=== PATIENT | female | born 1970 | race African-American/Black ===

== ENCOUNTER → 2017-04-24 | Outpatient (CLI) | payer OTHER ==
[2017-03-25 15:00] VITALS: BP 103/60
[~2017-04-24] MED LIST: HYDR-2758 PO
--- NOTE | 2017-04-24 11:38 | RAD ---
Indication: Follow-up abnormal CT head. Bilateral frontal contusions without hemorrhagic transformation. Technique: Noncontrast CT head was obtained. Comparison is from March 23, 2017. One or more of the following individualized dose reduction techniques were utilized for this examination: 1. Automated exposure control 2. Adjustment of the mA and/or kV according to patient size 3. Use of iterative reconstruction technique Findings: Areas of decreased attenuation in both frontal lobes inferiorly are similar to prior. These may be secondary to parenchymal contusions without intraparenchymal hemorrhage. Findings also could be areas of encephalomalacia from an older trauma. No new or enlarging area of increased or decreased attenuation within the brain parenchyma is apparent. The ventricles and sulci are within normal limits for age. There is no extra-axial fluid collection. There is no evidence of an evolving infarct. There is no depressed skull fracture. The included right maxillary sinus is opacified, likely with wall sclerosis. Impression: 1. Stable areas of decreased attenuation in the inferior frontal lobes could represent edema from recent trauma or encephalomalacia from more remote trauma. There is no intraparenchymal hemorrhage. 2. Findings suggesting chronic right maxillary sinusitis.
== END | disposition home or self-care (01) ==
LOC: CT 10:14
PROVIDERS: ATTEND Neurological Surgery
DX: S06.2X9A Diffuse traumatic brain injury with loss of consciousness of unspecified duration, initial encounter (principal); G93.89 Other specified disorders of brain; X58.XXXA Exposure to other specified factors, initial encounter; Y93.89 Activity, other specified; Y92.89 Other specified places as the place of occurrence of the external cause; Y99.8 Other external cause status
CPT/HCPCS: 70450

== ENCOUNTER 2017-08-10 10:27 | Emergency (ER) | payer BC, OTHER ==
[2017-08-10] MEDS: ONDANSETRON PF 4 MG/2 ML VIAL. IV (10:45)
[2017-08-10 10:58] LABS: BILIRUBIN,URINE NEGATIVE (NEG); CLARITY,URINE CLEAR; COLOR,URINE YELLOW; GLUCOSE,URINE NEGATIVE (NEG); NITRITE,URINE POSITIVE (NEG); PH,URINE 5.5; PROTEIN,URINE NEGATIVE (NEG-TRACE)
[2017-08-10 11:08] LABS: BACTERIA,URINE MANY /HPF (0-FEW); SQUAMOUS EPITHELIAL CELL,UR MANY /LPF
[2017-08-10 11:09] LABS: WBC,URINE 20-40 /HPF (0-4)
[2017-08-10 12:23] LABS: ADD MAN DIFF? NO
[2017-08-10 12:26] LABS: BASO % 1 % (0-3); EOS # 0.1 x10^3/uL (0.0-0.7); EOS % 2 % (0-3); HEMATOCRIT 36.8 % (36.0-47.0); HEMOGLOBIN 12.1 g/dL (12.0-15.5); LYMPH # 1.4 x10^3/uL (1.0-4.8); LYMPH % 38 % (24-48); MEAN CORPUSCULAR HEMOGLOBIN 29 pg (25-35); MEAN CORPUSCULAR HGB CONC 33 g/dL (31-37); MEAN CORPUSCULAR VOLUME 87 fL (79-100); MONO # 0.4 x10^3/uL (0.0-1.1); MONO % 9 % (0-9); NEUT # 1.9 x10^3uL (1.8-7.7); NEUT % 50 % (31-73); PLATELET COUNT 170 x10^3/uL (140-400); RED BLOOD COUNT 4.24 x10^6/uL (3.50-5.40); RED CELL DISTRIBUTION WIDTH 13.4 % (11.5-14.5); WHITE BLOOD COUNT 3.8 x10^3/uL (4.0-11.0)
[2017-08-10 12:41] LABS: NEG OBC SER NEG; POS OBC SER POS; PREG TEST PT QUAL NEGATIVE (NEG)
[2017-08-10 12:43] LABS: TROPONINI < 0.017 ng/mL (0.000-0.055)
[2017-08-10 12:44] LABS: ANION GAP 5 (6-14); BLOOD UREA NITROGEN 10 mg/dL (7-20); CALCIUM 9.2 mg/dL (8.5-10.1); CARBON DIOXIDE 30 mmol/L (21-32); CHLORIDE 106 mmol/L (98-107); CREATININE 0.9 mg/dL (0.6-1.0); GFR 81.9; GLUCOSE 89 mg/dL (70-99); POTASSIUM 3.9 mmol/L (3.5-5.1); SODIUM 141 mmol/L (136-145)
[2017-08-10 12:45] LABS: D-DIMER < 0.27 ug/mlFEU (0.00-0.50)
[2017-08-10 12:50] LABS: CKMB MASS < 0.5 ng/mL (0.0-3.6); CREATINE KINASE 136 U/L (26-192)
[2017-08-10 12:50] LABS: NT-PRO BNP 32 pg/mL (0-124); THYROID STIM HORMONE (TSH) 0.989 uIU/mL (0.358-3.74)
[2017-08-10 12:51] LABS: ALBUMIN 3.6 g/dL (3.4-5.0); ALK PHOS 49 U/L (46-116); ALT (SGPT) 15 U/L (14-59); AST (SGOT) 13 U/L (15-37); DIRECT BILIRUBIN 0.1 mg/dL (0.0-0.2); MAGNESIUM 1.9 mg/dL (1.8-2.4); TOTAL BILIRUBIN 0.5 mg/dL (0.2-1.0); TOTAL PROTEIN 7.3 g/dL (6.4-8.2)
== END 2017-08-10 13:18 | disposition home or self-care (01) ==
LOC: ER 10:27
DX: R42 Dizziness and giddiness (principal); F41.9 Anxiety disorder, unspecified; R11.0 Nausea; R20.2 Paresthesia of skin; R53.1 Weakness; Z88.8 Allergy status to other drugs, medicaments and biological substances; Z98.51 Tubal ligation status; Z88.0 Allergy status to penicillin
CPT/HCPCS: 36415; 70450; 71046; 80048; 80076; 81001; 82553; 83735; 83880; 84443; 84484; 84703; 85025; 85379; 87086; 87186; 93005; 99285-25

== ENCOUNTER 2017-11-20 11:34 | Emergency (ER) | payer BC, OTHER ==
[2017-11-20] MEDS: IV NORMAL SALINE 1000ML BAG 1,000 ML IV (13:00)
[2017-11-20] MEDS: ONDANSETRON PF 4 MG/2 ML VIAL. IV (13:01)
[2017-11-20] MEDS: PANTOPRAZOLE IV PUSH 40 MG VIAL. IVP (13:02)
[2017-11-20] MEDS: LIDO:MAALOX 1:1 20 ML SINGLE DOSE. SWSW (13:02)
[2017-11-20 13:07] LABS: ADD MAN DIFF? NO
[2017-11-20 13:10] LABS: BASO % 1 % (0-3); EOS # 0.1 x10^3/uL (0.0-0.7); EOS % 2 % (0-3); HEMOGLOBIN 12.4 g/dL (12.0-15.5); LYMPH # 1.3 x10^3/uL (1.0-4.8); LYMPH % 42 % (24-48); MEAN CORPUSCULAR HEMOGLOBIN 29 pg (25-35); MEAN CORPUSCULAR HGB CONC 33 g/dL (31-37); MEAN CORPUSCULAR VOLUME 86 fL (79-100); MONO # 0.3 x10^3/uL (0.0-1.1); MONO % 9 % (0-9); NEUT # 1.4 x10^3uL (1.8-7.7); NEUT % 46 % (31-73); PLATELET COUNT 181 x10^3/uL (140-400); RED BLOOD COUNT 4.29 x10^6/uL (3.50-5.40); RED CELL DISTRIBUTION WIDTH 13.9 % (11.5-14.5); WHITE BLOOD COUNT 3.1 x10^3/uL (4.0-11.0)
[2017-11-20 13:23] LABS: ANION GAP 8 (6-14); BLOOD UREA NITROGEN 10 mg/dL (7-20); BUN/CREATININE RATIO 10 (6-20); CARBON DIOXIDE 26 mmol/L (21-32); CHLORIDE 104 mmol/L (98-107); GFR 72.2; GLUCOSE 74 mg/dL (70-99); POTASSIUM 3.6 mmol/L (3.5-5.1); SODIUM 138 mmol/L (136-145)
[2017-11-20 13:29] LABS: ALBUMIN 3.8 g/dL (3.4-5.0); ALBUMIN/GLOBULIN RATIO 0.9 (1.0-1.7); ALK PHOS 39 U/L (46-116); ALT (SGPT) 16 U/L (14-59); AST (SGOT) 16 U/L (15-37); LIPASE 198 U/L (73-393); TOTAL BILIRUBIN 0.6 mg/dL (0.2-1.0); TOTAL PROTEIN 8.1 g/dL (6.4-8.2)
[2017-11-20 13:40] LABS: BILIRUBIN,URINE NEGATIVE (NEG); CLARITY,URINE CLEAR; COLOR,URINE YELLOW; GLUCOSE,URINE NEGATIVE (NEG); NITRITE,URINE NEGATIVE (NEG); PH,URINE 6.5; PROTEIN,URINE NEGATIVE (NEG-TRACE)
[2017-11-20 13:47] LABS: BACTERIA,URINE MANY /HPF (0-FEW); RBC,URINE OCC /HPF (0-2); SQUAMOUS EPITHELIAL CELL,UR FEW /LPF
[2017-11-20] MEDS ORDERED: CONTRAST GIVEN. MC (14:15)
[2017-11-20] MEDS: IOHEXOL 300 MG/ML 100ML VIAL. IV (14:32)
== END 2017-11-20 16:26 | disposition home or self-care (01) ==
LOC: ER 11:34
DX: R10.13 Epigastric pain (principal); R11.2 Nausea with vomiting, unspecified; E86.0 Dehydration; Z98.51 Tubal ligation status; Z88.0 Allergy status to penicillin; Z88.8 Allergy status to other drugs, medicaments and biological substances
CPT/HCPCS: 36415; 74177; 80053; 81001; 83690; 85025; 87086; 96360; 99285-25; J7030; Q9967

== ENCOUNTER 2019-03-28 07:03 | Emergency (ER) | payer SELFPAY ==
[~2019-03-28] VITALS: Ht 167.6 cm; Wt 54.0 kg
[~2019-03-28 07:03] MED LIST changes: +DIAZ5TAB PO; -HYDR-2758 PO; +HYDR-2761 PO; +ONDA4TAB10 SL
[2019-03-28] MEDS ORDERED: IV NORMAL SALINE 1000ML BAG 1,000 ML IV SCH (07:33)
[2019-03-28 08:07] LABS: CREATININE 0.9 mg/dL (0.6-1.0); GFR 81.2; POTASSIUM 3.7 mmol/L (3.5-5.1)
[2019-03-28 08:09] LABS: BASO % 1 % (0-3); EOS # 0.1 x10^3/uL (0.0-0.7); EOS % 2 % (0-3); HEMATOCRIT 35.2 % (36.0-47.0); HEMOGLOBIN 11.8 g/dL (12.0-15.5); LYMPH # 1.2 x10^3/uL (1.0-4.8); LYMPH % 29 % (24-48); MEAN CORPUSCULAR HEMOGLOBIN 29 pg (25-35); MEAN CORPUSCULAR HGB CONC 34 g/dL (31-37); MEAN CORPUSCULAR VOLUME 87 fL (79-100); MONO # 0.4 x10^3/uL (0.0-1.1); MONO % 9 % (0-9); NEUT # 2.5 x10^3/uL (1.8-7.7); NEUT % 59 % (31-73); PLATELET COUNT 175 x10^3/uL (140-400); RED BLOOD COUNT 4.07 x10^6/uL (3.50-5.40); RED CELL DISTRIBUTION WIDTH 13.2 % (11.5-14.5); WHITE BLOOD COUNT 4.2 x10^3/uL (4.0-11.0)
[2019-03-28 08:10] LABS: BILIRUBIN,URINE NEGATIVE (NEG); CLARITY,URINE CLOUDY; COLOR,URINE YELLOW; NITRITE,URINE POSITIVE (NEG); PH,URINE 5.5; PROTEIN,URINE NEGATIVE (NEG-TRACE)
[2019-03-28 08:13] LABS: ALBUMIN 3.7 g/dL (3.4-5.0); ALBUMIN/GLOBULIN RATIO 0.8 (1.0-1.7); TOTAL BILIRUBIN 0.3 mg/dL (0.2-1.0); TOTAL PROTEIN 8.1 g/dL (6.4-8.2)
[2019-03-28 08:24] LABS: BACTERIA,URINE MANY /HPF (0-FEW); RBC,URINE 0 /HPF (0-2); SQUAMOUS EPITHELIAL CELL,UR MOD /LPF; WBC,URINE 20-40 /HPF (0-4)
[2019-03-28 08:24] LABS: INFLUENZA A PATIENT NEGATIVE (NEGATIVE); INFLUENZA B PATIENT NEGATIVE (NEGATIVE)
--- NOTE | 2019-03-28 08:24 | PHYS DOC ---
Past Medical History Past Medical History: No Pertinent History Additional Past Medical Histor: denies Past Surgical History: Tubal ligation Alcohol Use: None Drug Use: None Adult General Chief Complaint Chief Complaint: NAUSEA/VOMITING/DIARRHA HPI HPI Patient is a 48 year old female who presents with complaining of nausea and vomiting. Patient states she had sore throat and earache with loss of her voice that started 4 days ago without fever, cough, shortness of breath and chest pain. Patient stated she couldn't go to work since yesterday because of loss of her voice and myalgia. Patient states since last night she had more than 5 episodes of vomiting with epigastric pain during episodes of vomiting as a sharp pain without radiation and rated her pain 5/10. Patient states she had normal bowel movement twice without diarrhea and denies urinary symptom. Patient states she doesn't want to have any medication except for IV fluid. Review of Systems Review of Systems Constitutional: Denies fever or chills [] Eyes: Denies change in visual acuity, redness, or eye pain [] HENT: Denies nasal congestion, reports earache and sore throat [] Respiratory: Denies cough or shortness of breath [] Cardiovascular: No additional information not addressed in HPI [] GI: Reports abdominal pain, nausea, vomiting, denies bloody stools or diarrhea [] : Denies dysuria or hematuria [] Musculoskeletal: Denies back pain or joint pain [] Integument: Denies rash or skin lesions [] Neurologic: Denies headache, focal weakness or sensory changes [] Endocrine: Denies polyuria or polydipsia [] All other systems were reviewed and found to be within normal limits, except as documented in this note. Current Medications Current Medications Current Medications Medications (Trade) Dose Ordered Sig/Bairon Start Time Stop Time Status Last Admin Dose Admin Sodium Chloride 1,000 ml @ 1,000 mls/hr Q1H 03/28/19 07:33 03/28/19 08:32 DC 03/28/19 07:54 1,000 MLS/HR Allergies Allergies Allergies Coded Allergies Type Severity Reaction Last Updated Verified Penicillins Allergy Intermediate 03/23/17 Yes diphenhydramine Allergy Intermediate 03/23/17 Yes Physical Exam Physical Exam Constitutional: Well developed, well nourished, mild distress, non-toxic appearance. [] HENT: Normocephalic, atraumatic, bilateral external ears normal, pharyngeal erythema, hoarseness and loss of voice, oropharynx moist, no oral exudates, nose normal. [] Eyes: PERRLA, EOMI, conjunctiva normal, no discharge. [] Neck: Normal range of motion, no tenderness, supple, no stridor. [] Cardiovascular:Heart rate regular rhythm, no murmur [] Lungs & Thorax: Bilateral breath sounds clear to auscultation [] Abdomen: Bowel sounds normal, soft, upper abdominal guarding without tenderness, no masses, no pulsatile masses. [] Skin: Warm, dry, no erythema, no rash. [] Back: No tenderness, no CVA tenderness. [] Extremities: No tenderness, no cyanosis, no clubbing, ROM intact, no edema. [] Neurologic: Alert and oriented X 3, normal motor function, normal sensory function, no focal deficits noted. [] Psychologic: Affect anxious, judgement normal, mood normal. [] Current Patient Data Vital Signs Vital Signs Date Time Temp Pulse Resp B/P (MAP) Pulse Ox O2 Delivery O2 Flow Rate FiO2 03/28/19 08:41 82 18 120/58 (78) 100 Room Air 03/28/19 07:07 98.1 98.1 Lab Values Laboratory Tests Test 03/28/19 07:08 03/28/19 07:15 03/28/19 07:20 03/28/19 07:55 Urine Collection Type Void Urine Color Yellow Urine Clarity Cloudy Urine pH 5.5 Urine Specific Wallace >=1.030 Urine Protein Negative mg/dL (NEG-TRACE) Urine Glucose (UA) Negative mg/dL (NEG) Urine Ketones (Stick) Negative mg/dL (NEG) Urine Blood Moderate (NEG) Urine Nitrite Positive (NEG) Urine Bilirubin Negative (NEG) Urine Urobilinogen Dipstick 1.0 mg/dL (0.2 mg/dL) Urine Leukocyte Esterase Large (NEG) Urine RBC 0 /HPF (0-2) Urine WBC 20-40 /HPF (0-4) Urine Squamous Epithelial Cells Mod /LPF Urine Bacteria Many /HPF (0-FEW) Urine Mucus Marked /LPF POC Urine HCG, Qualitative Hcg negative (Negative) White Blood Count 4.2 x10^3/uL (4.0-11.0) Red Blood Count 4.07 x10^6/uL (3.50-5.40) Hemoglobin 11.8 g/dL (12.0-15.5) L Hematocrit 35.2 % (36.0-47.0) L Mean Corpuscular Volume 87 fL (79-100) Mean Corpuscular Hemoglobin 29 pg (25-35) Mean Corpuscular Hemoglobin Concent 34 g/dL (31-37) Red Cell Distribution Width 13.2 % (11.5-14.5) Platelet Count 175 x10^3/uL (140-400) Neutrophils (%) (Auto) 59 % (31-73) Lymphocytes (%) (Auto) 29 % (24-48) Monocytes (%) (Auto) 9 % (0-9) Eosinophils (%) (Auto) 2 % (0-3) Basophils (%) (Auto) 1 % (0-3) Neutrophils # (Auto) 2.5 x10^3/uL (1.8-7.7) Lymphocytes # (Auto) 1.2 x10^3/uL (1.0-4.8) Monocytes # (Auto) 0.4 x10^3/uL (0.0-1.1) Eosinophils # (Auto) 0.1 x10^3/uL (0.0-0.7) Basophils # (Auto) 0.0 x10^3/uL (0.0-0.2) Sodium Level 142 mmol/L (136-145) Potassium Level 3.7 mmol/L (3.5-5.1) Chloride Level 105 mmol/L (98-107) Carbon Dioxide Level 27 mmol/L (21-32) Anion Gap 10 (6-14) Blood Urea Nitrogen 11 mg/dL (7-20) Creatinine 0.9 mg/dL (0.6-1.0) Estimated GFR (Cockcroft-Gault) 81.2 BUN/Creatinine Ratio 12 (6-20) Glucose Level 100 mg/dL (70-99) H Calcium Level 9.0 mg/dL (8.5-10.1) Total Bilirubin 0.3 mg/dL (0.2-1.0) Aspartate Amino Transferase (AST) 18 U/L (15-37) Alanine Aminotransferase (ALT) 7 U/L (14-59) L Alkaline Phosphatase 45 U/L (46-116) L Total Protein 8.1 g/dL (6.4-8.2) Albumin 3.7 g/dL (3.4-5.0) Albumin/Globulin Ratio 0.8 (1.0-1.7) L Lipase 157 U/L (73-393) Influenza Type A Antigen Negative (NEGATIVE) Influenza Type B Antigen Negative (NEGATIVE) Laboratory Tests 03/28/19 07:20 Laboratory Tests 03/28/19 07:20 EKG EKG [] Radiology/Procedures Radiology/Procedures [] Course & Med Decision Making Course & Med Decision Making Pertinent Labs reviewed. (See chart for details) Evaluation of patient in ER showed 48-year-old female patient with complaining of sore throat and voice loss and nausea and vomiting. She did not want to have nausea medication in ER. Labs was unremarkable except for UTI and flu test was negative. Patient felt better after IV fluid and tolerated oral intake. I've spoken with the patient and/or caregivers. I've explained the patient's condition, diagnosis and treatment plan based on information available to me at this time. I've answered the patient's and/or caregivers questions and addressed any concerns. The patient and/or caregivers have a good understanding the patient's diagnosis, condition and treatment plan as can be expected at this point. Vital signs have been stabilized. The patient's condition is stable for discharge from the emergency department. The patient will pursue further outpatient evaluation with her primary care provider or other designated consulting physician as outlined in the discharge instructions. Patient and/or caregivers are agreeable to this plan of care and follow-up instructions have been explained in detail. The patient and/or caregivers have received these instructions in written format and expressed understanding of these discharge instructions. The patient and her caregivers are aware that if any significant change in condition or worsening of symptoms should prompt him to immediately return to this of the closest emergency department. If an emergent department is not readily available I would encourage him to call 911. Deshawn Disclaimer Dragon Disclaimer This electronic medical record was generated, in whole or in part, using a voice recognition dictation system. Departure Departure Impression: Primary Impression: Acute viral laryngitis Additional Impressions: Nausea and vomiting Urinary tract infection Disposition: HOME, SELF-CARE (at 0 [phone]) Condition: IMPROVED Referrals: TRUE CROSS MD (PCP) Patient Instructions: Laryngitis, Nausea and Vomiting, Urinary Tract Infection Additional Instructions: Drink plenty of liquids Follow-up with your primary care physician in 3-5 days Return to ER if not getting better Do not eat solid food for the next 24 hours Scripts Ondansetron Hcl (ZOFRAN) 4 Mg Tablet 1 TAB PO PRN Q6-8HRS for nausea, #12 TAB Prov: CHAPINCITO VALENTINE MD 03/28/19 Prednisone (PREDNISONE) 50 Mg Tablet 1 TAB PO DAILY, #5 TAB Prov: CHAPINCITO VALENTINE MD 03/28/19 Ciprofloxacin Hcl (CIPRO) 250 Mg Tablet 1 TAB PO BID for infection, #14 TAB Prov: CHAPINCITO VALENTINE MD 03/28/19 Problem Qualifiers Additional Impressions: Nausea and vomiting Vomiting type: unspecified Vomiting Intractability: unspecified Qualified Codes: R11.2 - Nausea with vomiting, unspecified Urinary tract infection Urinary tract infection type: acute cystitis Hematuria presence: without hematuria Qualified Codes: N30.00 - Acute cystitis without hematuria CHAPINCITO VALENTINE MD Mar 28, 2019 08:24
[2019-03-28] MEDS ORDERED: PRED50TA PO (08:40)
[2019-03-28] MEDS ORDERED: ONDA4TAB7 PO (08:40)
[2019-03-28] MEDS ORDERED: CIPR250T30 PO (08:40)
[2019-03-28 08:41] VITALS: BP 120/58
== END 2019-03-28 08:57 | disposition home or self-care (01) ==
LOC: ER 07:03
DX: J04.0 Acute laryngitis (principal); R11.2 Nausea with vomiting, unspecified; N30.00 Acute cystitis without hematuria; Z88.0 Allergy status to penicillin; Z88.8 Allergy status to other drugs, medicaments and biological substances
CPT/HCPCS: 36415; 80053; 81001; 81025; 83690; 85025; 87086; 87804; 96360; 99284; J7030

== ENCOUNTER 2020-02-10 02:15 | Emergency (ER) | payer BC ==
[~2020-02-10] VITALS: Ht 167.6 cm; Wt 55.0 kg
[~2020-02-10 02:15] MED LIST changes: +CIPR250T30 PO; +ONDA4TAB7 PO; +PRED50TA PO
[2020-02-10 03:00] LABS: BASO # 0.1 x10^3/uL (0.0-0.2); BASO % 2 % (0-3); EOS # 0.1 x10^3/uL (0.0-0.7); EOS % 2 % (0-3); HEMATOCRIT 34.7 % (36.0-47.0); HEMOGLOBIN 11.7 g/dL (12.0-15.5); LYMPH # 1.8 x10^3/uL (1.0-4.8); LYMPH % 48 % (24-48); MEAN CORPUSCULAR HEMOGLOBIN 30 pg (25-35); MEAN CORPUSCULAR HGB CONC 34 g/dL (31-37); MEAN CORPUSCULAR VOLUME 87 fL (79-100); MONO # 0.4 x10^3/uL (0.0-1.1); MONO % 10 % (0-9); NEUT # 1.5 x10^3/uL (1.8-7.7); NEUT % 39 % (31-73); PLATELET COUNT 171 x10^3/uL (140-400); RED BLOOD COUNT 3.97 x10^6/uL (3.50-5.40); RED CELL DISTRIBUTION WIDTH 13.3 % (11.5-14.5); WHITE BLOOD COUNT 3.8 x10^3/uL (4.0-11.0)
[2020-02-10 03:08] LABS: CALCIUM 8.9 mg/dL (8.5-10.1); CREATININE 0.8 mg/dL (0.6-1.0); GFR 92.6; POTASSIUM 3.8 mmol/L (3.5-5.1)
--- NOTE | 2020-02-10 03:08 | RAD ---
Chest AP portable at 0234: Reason for examination: Chest pain. Comparison is made to previous study dated 08/10/2017. The heart size is normal. Mediastinum is unremarkable. Lung cortez are clear. No acute bony abnormalities are seen. Impression: No acute cardiopulmonary disease. Electronically signed by: Adrianne Tapia MD (02/10/2020 3:05 AM) JAYSHREE
[2020-02-10 03:13] LABS: ALBUMIN 3.6 g/dL (3.4-5.0); TOTAL BILIRUBIN 0.3 mg/dL (0.2-1.0); TOTAL PROTEIN 7.3 g/dL (6.4-8.2)
--- NOTE | 2020-02-10 03:13 | EKG ---
[facility] [address] [place] [address] Test Date: 2020-02-10 Test Time: 02:22:17 Pat Name: JOSE SALINAS Department: Room: Gender: F Manager Fine: : 1970 Requested By: LONNIE RHODES Order Number: [id number] Reading MD: Rc Mo MD Measurements Intervals [place] Rate: 85 P: 68 GA: 200 QRS: 57 QRSD: 62 T: 10 QT: 352 QTc: 419 Interpretive Statements SINUS RHYTHM CONSIDER PRIOR ANTEROSEPTAL INFARCT Electronically Signed On 02-10-2020 12:35:29 CDT by Rc Mo MD
[2020-02-10] MEDS ORDERED: MORPHINE SULFATE 2 MG/ML VIAL. IV ONE (03:15)
[2020-02-10] MEDS ORDERED: ONDANSETRON PF 4 MG/2 ML VIAL. IVP ONE (03:15)
[2020-02-10] MEDS ORDERED: ONDANSETRON ODT 4 MG TAB.RAPDIS. ONE (03:20)
[2020-02-10] MEDS ORDERED: ONDANSETRON ODT 4 MG TAB.RAPDIS. PO ONE (03:30)
[2020-02-10] MEDS ORDERED: ASPIRIN CHEWABLE 81 MG TABLET. PO ONE (03:30)
--- NOTE | 2020-02-10 03:39 | PHYS DOC ---
Past Medical History Past Medical History: Pneumonia Additional Past Medical Histor: denies Past Surgical History: Tubal ligation Smoking Status: Never Smoker Alcohol Use: None Drug Use: None General Adult EDM: Chief Complaint: CHEST PAIN HPI: HPI: Patient is a 49 year old female presents with the chief complaint of left sided chest with onset 1 hour prior to arrival Patient describes the pain as a constant stabbing pain. Patient states she feels like she cant catch her breath. She has associated nausea. On exam patient has LUQ abdominal pain. EKG - without acute changes. Patients vital signs are stable. Review of Systems: Review of Systems: Constitutional: Denies fever or chills. [] Eyes: Denies change in visual acuity. [] HENT: Denies nasal congestion or sore throat. [] Respiratory: Denies cough or shortness of breath. [] Cardiovascular: Denies chest pain or edema. [] GI: Denies abdominal pain, nausea, vomiting, bloody stools or diarrhea. [] : Denies dysuria. [] Musculoskeletal: Denies back pain or joint pain. [] Integument: Denies rash. [] Neurologic: Denies headache, focal weakness or sensory changes. [] Endocrine: Denies polyuria or polydipsia. [] Lymphatic: Denies swollen glands. [] Psychiatric: Denies depression or anxiety. [] Heart Score: HEART Score for Chest Pain: HEART Score for Chest Pain Response (Comments) Value History Slighlty/Non-Suspicious 0 ECG Normal 0 Age >45 - < 65 1 Risk Factors No Risk Factors 0 Troponin < Normal Limit 0 Total 1 Risk Factors: Risk Factors: DM, Current or recent (<one month) smoker, HTN, HLP, family history of CAD, obesity. Risk Scores: Score 0 - 3: 2.5% MACE over next 6 weeks - Discharge Home Score 4 - 6: 20.3% MACE over next 6 weeks - Admit for Clinical Observation Score 7 - 10: 72.7% MACE over next 6 weeks - Early Invasive Strategies Current Medications: Current Medications Medications (Trade) Dose Ordered Sig/Bairon Start Time Stop Time Status Last Admin Dose Admin Aspirin (Aspirin Chewable) 324 mg 1X ONCE 02/10/20 03:30 02/10/20 03:31 DC 02/10/20 03:23 324 MG Ketorolac Tromethamine (Toradol 30mg Vial) 30 mg 1X ONCE 02/10/20 04:00 02/10/20 04:01 Morphine Sulfate (Morphine Sulfate) 2 mg 1X ONCE 02/10/20 03:15 02/10/20 03:21 DC Ondansetron HCl (Zofran Odt) 4 mg STK-MED ONCE 02/10/20 03:20 02/10/20 03:21 DC Ondansetron HCl (Zofran) 4 mg 1X ONCE 02/10/20 03:15 02/10/20 03:21 DC Allergies: Allergies: Allergies Coded Allergies Type Severity Reaction Last Updated Verified Penicillins Allergy Intermediate 03/23/17 Yes diphenhydramine Allergy Intermediate 03/23/17 Yes Physical Exam: PE: General: alert, no acute distress. Skin: warm, dry and intact. Head:: Normocephalic, atraumatic. Neck: Trachea midline. Eyes: EOMI, Normal conjunctiva, No drainage CARDIOVASCULAR: Regular rate and rhythm RESPIRATORY: No respiratory distress Back: Full range of motion. MUSCULOSKELETAL: Full range of motion of bilateral upper and lower extremities. GASTROINTESTINAL: Abdomen soft with tenderness in the left upper quadrant NEUROLOGICAL: Alert and noted to person, place and time. No neurological deficits observed Psychiatric: Cooperative. Normal judgment Current Patient Data: Labs: Laboratory Tests Test 02/10/20 02:45 White Blood Count 3.8 x10^3/uL (4.0-11.0) L Red Blood Count 3.97 x10^6/uL (3.50-5.40) Hemoglobin 11.7 g/dL (12.0-15.5) L Hematocrit 34.7 % (36.0-47.0) L Mean Corpuscular Volume 87 fL (79-100) Mean Corpuscular Hemoglobin 30 pg (25-35) Mean Corpuscular Hemoglobin Concent 34 g/dL (31-37) Red Cell Distribution Width 13.3 % (11.5-14.5) Platelet Count 171 x10^3/uL (140-400) Neutrophils (%) (Auto) 39 % (31-73) Lymphocytes (%) (Auto) 48 % (24-48) Monocytes (%) (Auto) 10 % (0-9) H Eosinophils (%) (Auto) 2 % (0-3) Basophils (%) (Auto) 2 % (0-3) Neutrophils # (Auto) 1.5 x10^3/uL (1.8-7.7) L Lymphocytes # (Auto) 1.8 x10^3/uL (1.0-4.8) Monocytes # (Auto) 0.4 x10^3/uL (0.0-1.1) Eosinophils # (Auto) 0.1 x10^3/uL (0.0-0.7) Basophils # (Auto) 0.1 x10^3/uL (0.0-0.2) Sodium Level 139 mmol/L (136-145) Potassium Level 3.8 mmol/L (3.5-5.1) Chloride Level 104 mmol/L (98-107) Carbon Dioxide Level 29 mmol/L (21-32) Anion Gap 6 (6-14) Blood Urea Nitrogen 10 mg/dL (7-20) Creatinine 0.8 mg/dL (0.6-1.0) Estimated GFR (Cockcroft-Gault) 92.6 BUN/Creatinine Ratio 13 (6-20) Glucose Level 91 mg/dL (70-99) Calcium Level 8.9 mg/dL (8.5-10.1) Total Bilirubin 0.3 mg/dL (0.2-1.0) Aspartate Amino Transferase (AST) 12 U/L (15-37) L Alanine Aminotransferase (ALT) 9 U/L (14-59) L Alkaline Phosphatase 34 U/L (46-116) L Troponin I Quantitative < 0.017 ng/mL (0.000-0.055) Total Protein 7.3 g/dL (6.4-8.2) Albumin 3.6 g/dL (3.4-5.0) Albumin/Globulin Ratio 1.0 (1.0-1.7) Laboratory Tests 02/10/20 02:45 Laboratory Tests 02/10/20 02:45 Vital Signs: Vital Signs Date Time Temp Pulse Resp B/P (MAP) Pulse Ox O2 Delivery O2 Flow Rate FiO2 02/10/20 03:15 98.7 80 16 114/59 (77) 100 Room Air 98.7 EKG: EKG: EKG performed at 222 heart rate [address] elevation no ST depression no acute SD [] Radiology/Procedures: Radiology/Procedures: [] Impression: CT abdomen and pelvis with contrast: Reason for examination: Abdominal pain. Comparison is made to previous study dated 11/20/2017. Helical images were obtained through the abdomen and pelvis with intravenous administration of 75 cc Omnipaque 300. Reconstruction was performed in sagittal and coronal planes. Exposure: One or more of the following individualized dose reduction techniques were utilized for this examination: 1. Automated exposure control 2. Adjustment of the mA and/or kV according to patient size 3. Use of iterative reconstruction technique. The lung bases are clear. The heart size is normal with no pericardial effusion. There are no focal abnormality seen in the liver, spleen, adrenal glands or pancreas. There is no cholelithiasis. The kidneys show no renal masses, renal calculi, hydronephrosis or evidence of obstructive uropathy. The abdominal aorta and inferior vena cava show no acute abnormalities. There is very little intra-abdominal fat present in the appendix is not definitively identified. There is no evidence of diverticulosis, diverticulitis or colitis. The small intestinal tract is not abnormally dilated and no obstruction is seen. No abnormality seen at the stomach. No abnormality seen at the bladder. The uterus is enlarged measuring at least 12.4 x 8.2 x 7.4 cm in greatest dimensions and contains multiple small hypodense nodules which probably reflects presence of multiple fibroids with at least 2 calcifying fibroids present with the largest measuring up to at least 2 cm in size. No definite adnexal masses are seen. No free fluid or free air seen in the abdomen or pelvis. No acute bony abnormalities are seen. IMPRESSION: Enlarged uterus with multiple hypodense lesions consistent with fibroids with 2 calcifying fibroids measuring up to 2 cm in size. Course & Med Decision Making: Course & Med Decision Making Pertinent Labs and Imaging studies reviewed. (See chart for details) [] Patient was evaluated for chief complaint. Work-up consisted of laboratory analysis radiologic imaging and EKG. Results reviewed and discussed with patient. Patient's troponin within normal limits chest x-ray no acute abnormalities and EKG without acute ischemic changes. Patient was treated with aspirin. Patient states she felt nauseous after taking the aspirin. I did order Zofran but patient declined. I initially ordered morphine for patient's pain but she also declined it. I then changed pain medication to Toradol and she advised nursing that she does not want any medications through her IV. Deshawn Disclaimer: Deshawn Disclaimer: This electronic medical record was generated, in whole or in part, using a voice recognition dictation system. Departure Departure Impression: Primary Impression: Chest pain Additional Impression: Abdominal pain Disposition: HOME, SELF-CARE Condition: STABLE Referrals: NO PCP (PCP) Patient Instructions: Abdominal Pain, Chest Pain (Nonspecific) Scripts Tramadol Hcl (ULTRAM) 50 Mg Tablet 1 TAB PO PRN Q6HRS PRN for pain MDD 4 Tablet(s) for 7 Days, #20 TAB 0 Refills Prov: LONNIE RHODES I DO 02/10/20 Justicifation of Admission Dx: Justifications for Admission: Justification of Admission Dx: N/A LONNIE RHODES I DO Feb 10, 2020 03:39
[2020-02-10] MEDS ORDERED: CONTRAST GIVEN. MC PRN (04:00)
[2020-02-10] MEDS ORDERED: IOHEXOL 300 MG/ML 100ML VIAL. IV ONE (04:00)
[2020-02-10] MEDS ORDERED: KETOROLAC 30 MG/ML VIAL. IVP ONE (04:00)
--- NOTE | 2020-02-10 04:22 | RAD ---
CT abdomen and pelvis with contrast: Reason for examination: Abdominal pain. Comparison is made to previous study dated 11/20/2017. Helical images were obtained through the abdomen and pelvis with intravenous administration of 75 cc Omnipaque 300. Reconstruction was performed in sagittal and coronal planes. Exposure: One or more of the following individualized dose reduction techniques were utilized for this examination: 1. Automated exposure control 2. Adjustment of the mA and/or kV according to patient size 3. Use of iterative reconstruction technique. The lung bases are clear. The heart size is normal with no pericardial effusion. There are no focal abnormality seen in the liver, spleen, adrenal glands or pancreas. There is no cholelithiasis. The kidneys show no renal masses, renal calculi, hydronephrosis or evidence of obstructive uropathy. The abdominal aorta and inferior vena cava show no acute abnormalities. There is very little intra-abdominal fat present in the appendix is not definitively identified. There is no evidence of diverticulosis, diverticulitis or colitis. The small intestinal tract is not abnormally dilated and no obstruction is seen. No abnormality seen at the stomach. No abnormality seen at the bladder. The uterus is enlarged measuring at least 12.4 x 8.2 x 7.4 cm in greatest dimensions and contains multiple small hypodense nodules which probably reflects presence of multiple fibroids with at least 2 calcifying fibroids present with the largest measuring up to at least 2 cm in size. No definite adnexal masses are seen. No free fluid or free air seen in the abdomen or pelvis. No acute bony abnormalities are seen. IMPRESSION: Enlarged uterus with multiple hypodense lesions consistent with fibroids with 2 calcifying fibroids measuring up to 2 cm in size. Electronically signed by: Adrianne Tapia MD (02/10/2020 4:19 AM) JANINE
[2020-02-10] MEDS ORDERED: TRAM-48 PO (04:26)
[2020-02-10 04:40] VITALS: BP 106/72
== END 2020-02-10 04:50 | disposition home or self-care (01) ==
LOC: ER 02:15
DX: R07.89 Other chest pain (principal); R10.12 Left upper quadrant pain; R11.0 Nausea; Z98.51 Tubal ligation status; Z88.0 Allergy status to penicillin; Z88.8 Allergy status to other drugs, medicaments and biological substances
CPT/HCPCS: 36415; 71045; 74177; 80053; 83690; 84484; 85025; 93005; 99285; Q9967

== ENCOUNTER 2020-11-11 23:58 | Emergency (ER) | payer SELFPAY ==
[~2020-11-11] VITALS: Ht 167.6 cm; Wt 54.5 kg
[~2020-11-11 23:58] MED LIST changes: +TRAM-48 PO
--- NOTE | 2020-11-12 01:06 | PHYS DOC ---
Past Medical History Past Medical History: Pneumonia Additional Past Medical Histor: denies Past Surgical History: Tubal ligation Smoking Status: Never Smoker Alcohol Use: None Drug Use: None General Adult EDM: Chief Complaint: SHORTNESS OF BREATH HPI: HPI: Patient is a 50 year old female who present to ER due to sore throat, cough and trouble breathing for several days. Patient says she never smoked but she lives with somebody who is a smoker. Patient denies any fever, no chest pain, no abdominal pain. Patient denies any neck stiffness, she denies any headache. Patient came home from work yesterday, her house AC unit was nocturnal, she felt really hot, and that made her sicker. Review of Systems: Review of Systems: Constitutional: Denies fever or chills. [] Eyes: Denies change in visual acuity. [] HENT: Denies nasal congestion, positive sore throat Respiratory: Positive for cough and trouble breathing Cardiovascular: Denies chest pain or edema. [] GI: Denies abdominal pain, nausea, vomiting, bloody stools or diarrhea. [] : Denies dysuria. [] Musculoskeletal: Denies back pain or joint pain. [] Integument: Denies rash. [] Neurologic: Denies headache, focal weakness or sensory changes. [] Endocrine: Denies polyuria or polydipsia. [] Lymphatic: Denies swollen glands. [] Psychiatric: Denies depression or anxiety. [] Heart Score: C/O Chest Pain: N/A Risk Factors: Risk Factors: DM, Current or recent (<one month) smoker, HTN, HLP, family history of CAD, obesity. Risk Scores: Score 0 - 3: 2.5% MACE over next 6 weeks - Discharge Home Score 4 - 6: 20.3% MACE over next 6 weeks - Admit for Clinical Observation Score 7 - 10: 72.7% MACE over next 6 weeks - Early Invasive Strategies Allergies: Allergies: Allergies Coded Allergies Type Severity Reaction Last Updated Verified Penicillins Allergy Intermediate 03/23/17 Yes diphenhydramine Allergy Intermediate 03/23/17 Yes Physical Exam: PE: Constitutional: Well developed, well nourished, no acute distress, non-toxic appearance. [] HENT: Normocephalic, atraumatic, bilateral external ears normal, oropharynx moist with erythema,, no oral exudates, nose normal. [] Eyes: PERRLA, EOMI, conjunctiva normal, no discharge. [] Neck: Normal range of motion, no tenderness, supple, no stridor. [] Cardiovascular:Heart rate regular rhythm, no murmur [] Lungs & Thorax: Bilateral breath sounds clear to auscultation [] Abdomen: Bowel sounds normal, soft, no tenderness, no masses, no pulsatile masses. [] Skin: Warm, dry, no erythema, no rash. [] Back: No tenderness, no CVA tenderness. [] Extremities: No tenderness, no cyanosis, no clubbing, ROM intact, no edema. [] Neurologic: Alert and oriented X 3, normal motor function, normal sensory function, no focal deficits noted. [] Psychologic: Affect normal, judgement normal, mood normal. [] Current Patient Data: Vital Signs: Vital Signs Date Time Temp Pulse Resp B/P (MAP) Pulse Ox O2 Delivery O2 Flow Rate FiO2 11/12/20 00:32 98.4 87 20 103/43 (63) 100 Room Air 98.4 EKG: EKG: [] Radiology/Procedures: Radiology/Procedures: [facility] [address] [place] [address] IMAGING REPORT Signed PATIENT: JOSE SALINAS ACCOUNT: [id number] : 1970 LOCATION: ER AGE: 50 SEX: F EXAM STATUS: REG ER ORD. PHYSICIAN: JOCELYN AL DO REASON: soa PROCEDURE: CHEST AP ONLY XR CHEST 1V INDICATION: soa . COMPARISON STUDY: None. FINDINGS: Lungs: Hyperexpanded lung volume. No pulmonary mass or consolidation. The tracheobronchial tree and hilar structures are normal. Pleura: No pleural effusion or pneumothorax. Heart and Mediastinum: The cardiomediastinal silhouette is normal. The great vessels of the thorax are normal. Bones and Soft Tissues: The bones and soft tissues are within normal limits. IMPRESSION: No acute cardiopulmonary process. Electronically signed by: Maged Maya MD (11/12/2020 1:58 AM) [facility] DICTATED and SIGNED BY: MAGED MAYA MD DATE: 11/12/20 [id number] 0 Course & Med Decision Making: Course & Med Decision Making Pertinent Labs and Imaging studies reviewed. (See chart for details) Patient is a 50-year-old female who presented to ER due to nonproductive cough and trouble breathing, sore throat for several days. Patient vital signs were stable in the ED, she had no chest pain, and has had no fever. Patient will be discharged home with Zithromax and steroid to treat for pharyngitis and bronchitis. Deshawn Disclaimer: Deshawn Disclaimer: This electronic medical record was generated, in whole or in part, using a voice recognition dictation system. Departure Departure Impression: Primary Impression: Acute pharyngitis Disposition: HOME / SELF CARE / HOMELESS Condition: STABLE Referrals: NO PCP (PCP) Please follow up with [facility] this week. [address], [address] [place] [address] Phone number: [phone] Patient Instructions: Viral and Bacterial Pharyngitis Additional Instructions: Thank you for visiting our Emergency Department. We appreciate you trusting us with your care. If any additional problems come up don't hesitate to return to visit us. Please follow up with your primary care provider so they can plan additional care if needed and know about the problem that you had. If symptoms worsen come back to the Emergency Department. Any concerning symptoms that start such as chest pain, shortness of air, weakness or numbness on one side of the body, running high fevers or any other concerning symptoms return to the ER. Scripts Azithromycin (ZITHROMAX) 250 Mg Tablet 1 PKG PO UD, #6 TAB Prov: JOCELYN AL DO 11/12/20 Prednisone (PREDNISONE) 20 Mg Tablet 1 TAB PO DAILY for 7 Days, #7 TAB Prov: JOCELYN AL DO 11/12/20 JOCELYN AL DO Nov 12, 2020 01:06
--- NOTE | 2020-11-12 02:00 | RAD ---
XR CHEST 1V INDICATION: soa . COMPARISON STUDY: None. FINDINGS: Lungs: Hyperexpanded lung volume. No pulmonary mass or consolidation. The tracheobronchial tree and h ilar structures are normal. Pleura: No pleural effusion or pneumothorax. Heart and Mediastinum: The cardiomediastinal silhouette is normal. The great vessels of the thorax ar e normal. Bones and Soft Tissues: The bones and soft tissues are within normal limits. IMPRESSION: No acute cardiopulmonary process. Electronically signed by: Raji Rojas MD (11/12/2020 1:58 AM) [facility]
[2020-11-12] MEDS ORDERED: PRED20TA PO (02:04)
[2020-11-12] MEDS ORDERED: AZIT250T PO (02:04)
[2020-11-12 02:14] VITALS: BP 107/68
== END 2020-11-12 02:19 | disposition home or self-care (01) ==
LOC: ER 23:58
DX: J02.9 Acute pharyngitis, unspecified (principal); R05 Cough; R06.02 Shortness of breath; Z88.0 Allergy status to penicillin; Z88.5 Allergy status to narcotic agent
CPT/HCPCS: 71045; 99283

== ENCOUNTER 2020-11-22 01:59 | Emergency (ER) | payer SELFPAY ==
[~2020-11-22] VITALS: Ht 167.6 cm; Wt 55.0 kg
[~2020-11-22 01:59] MED LIST changes: +AZIT250T PO; +PRED20TA PO
[2020-11-22 02:10] VITALS: BP 112/58
--- NOTE | 2020-11-22 03:13 | ED.ADGEN ---
Past Medical History Past Medical History: Pneumonia Additional Past Medical Histor: denies Past Surgical History: Tubal ligation Smoking Status: Never Smoker Alcohol Use: None Drug Use: None General Adult EDM: Chief Complaint: MECHANICAL FALL HPI: HPI: Patient is a 50 year old female coming in after a fall out of bed. Patient states she was having a nightmare when she fell off her bed onto her wood floor. Patient states she fell and hit the top of her foot. States that then a lamp fell on top of her head striking her on the top of her right head has a small bump on it. Denies any cuts or bleeding. No other complaints does not take anything for pain. Review of Systems: Review of Systems: All other systems within normal limits except for as noted in the HPI Current Medications: Current Medications Medications (Trade) Dose Ordered Sig/Bairon Start Time Stop Time Status Last Admin Dose Admin Ibuprofen (Motrin) 800 mg 1X ONCE 11/22/20 03:15 11/22/20 03:16 DC Allergies: Allergies: Allergies Coded Allergies Type Severity Reaction Last Updated Verified Penicillins Allergy Intermediate 03/23/17 Yes diphenhydramine Allergy Intermediate 03/23/17 Yes Physical Exam: PE: Constitutional: Well developed, well nourished, no acute distress, non-toxic appearance. [] HENT: Normocephalic, atraumatic, bilateral external ears normal, nose normal. Very small bump on top of right head [] Eyes: PERRLA, conjunctiva normal, no discharge. [] Neck: No rigidity, supple, no stridor. [] Cardiovascular: Regular rate and rhythm, brisk cap refill [] Lungs & Thorax: Non labored symmetric respirations, no tachypnea or respiratory distress [] Abdomen: Soft, nondistended. Skin: Warm, dry, no erythema, no rash. [] Back: Unremarkable Extremities: No deformities, range of motion grossly intact, no lower extremity edema. Bruising on dorsum of toes of left foot, mild dorsal edema [] Neurologic: Alert and oriented X 3, no focal deficits noted. [] Psychologic: Affect normal, judgement normal, mood normal. [] Current Patient Data: Vital Signs: Vital Signs Date Time Temp Pulse Resp B/P (MAP) Pulse Ox O2 Delivery O2 Flow Rate FiO2 11/22/20 02:10 98.1 80 20 112/58 (81) 98 Room Air 98.1 EKG: EKG: [] Heart Score: C/O Chest Pain: No Risk Factors: Risk Factors: DM, Current or recent (<one month) smoker, HTN, HLP, family history of CAD, obesity. Risk Scores: Score 0 - 3: 2.5% MACE over next 6 weeks - Discharge Home Score 4 - 6: 20.3% MACE over next 6 weeks - Admit for Clinical Observation Score 7 - 10: 72.7% MACE over next 6 weeks - Early Invasive Strategies Radiology/Procedures: Radiology/Procedures: [] Fracture of proximal phalanx of left second toe Course & Med Decision Making: Course & Med Decision Making Pertinent Labs and Imaging studies reviewed. (See chart for details) [] Dragon Disclaimer: Dragon Disclaimer: This electronic medical record was generated, in whole or in part, using a voice recognition dictation system. Departure Departure Impression: Primary Impression: Fracture of toe of left foot Disposition: 01 HOME / SELF CARE / HOMELESS Condition: STABLE Referrals: NO PCP (PCP) Patient Instructions: Toe Fracture Additional Instructions: Keep foot elevated as much as possible for the first few days. Use hard soled shoe when walking. Follow-up with your primary care provider. May use Tylenol and ibuprofen for pain BRENDAN VO MD Nov 22, 2020 03:13
[2020-11-22] MEDS ORDERED: IBUPROFEN 400 MG TABLET. PO ONE (03:15)
--- NOTE | 2020-11-22 07:02 | RAD ---
XR FOOT_LEFT 3 VIEWS History: Fall, top of foot and toe pain. Comparison: None. Technique: 3 views the left foot. Findings: Osseous mineralization is normal. There is an oblique intra-articular fracture proximal phalangeal he ad second toe with approximately 1 mm offset and diastasis at the PIP articular surface. Fracture julio c ency extends through the midportion of the articular surface. No significant degerative changes. Soft tissues are unremarkable. Impression: 1. Oblique intra-articular fracture proximal phalangeal head of the second toe. Electronically signed by: Srini Mac MD (11/22/2020 6:59 AM) [facility]
== END 2020-11-22 04:00 | disposition home or self-care (01) ==
LOC: ER 01:59
DX: S92.912A Unspecified fracture of left toe(s), initial encounter for closed fracture (principal); S09.90XA Unspecified injury of head, initial encounter; Z88.0 Allergy status to penicillin; Z88.5 Allergy status to narcotic agent; W06.XXXA Fall from bed, initial encounter; Y93.89 Activity, other specified; Y92.89 Other specified places as the place of occurrence of the external cause; Y99.8 Other external cause status
CPT/HCPCS: 73630; 99284

== ENCOUNTER 2021-01-30 16:14 | Emergency (ER) | payer SELFPAY ==
[~2021-01-30] VITALS: Ht 167.6 cm; Wt 54.0 kg
[2021-01-30] MEDS ORDERED: KETOROLAC 15 MG/ML VIAL. IM ONE (16:30)
--- NOTE | 2021-01-30 16:34 | PHYS DOC ---
Past Medical History Past Medical History: No Pertinent History, Pneumonia Additional Past Medical Histor: denies Past Surgical History: No Surgical History, Tubal ligation Smoking Status: Never Smoker Alcohol Use: None Drug Use: None General Adult EDM: Chief Complaint: CHEST PAIN HPI: HPI: 50-year-old female presents to the emergency department complaining of left- sided chest pain along with trapezius area pain, shoulder pain, neck pain for the last 2 days. 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 Reports that this makes the pain worse. The patient admits that moving her arm makes the pain worse. Nothing is made the pain better. She has no family history of family members with early cardiac disease below the age of 50. She denies any trauma or shortness of breath, palpitations, abdominal pain, nausea vomiting, cough, fever. She has no history of blood clots, no recent surgeries. She is currently undergoing menopause. Review of Systems: Review of Systems: ROS otherwise negative except for what was documented in the HPI Heart Score: C/O Chest Pain: Yes HEART Score for Chest Pain: HEART Score for Chest Pain Response (Comments) Value History Slighlty/Non-Suspicious 0 ECG Normal 0 Age >45 - < 65 1 Risk Factors No Risk Factors 0 Total 1 Allergies: Allergies: Allergies Coded Allergies Type Severity Reaction Last Updated Verified Penicillins Allergy Intermediate 03/23/17 Yes diphenhydramine Allergy Intermediate 03/23/17 Yes Physical Exam: PE: Constitutional: No acute distress, non-toxic appearance. HENT: Atraumatic, bilateral external ears normal, nose normal. Eyes: Conjunctiva normal, no discharge. Neck: Normal range of motion, supple, no stridor. Cardiovascular: Heart rate regular rhythm. 2+ radial pulses and equal Lungs & Thorax: No respiratory distress, symmetrical expansion. Bilateral breath sounds clear to auscultation Chest wall: Reproducible tenderness is appreciated to the left anterior rib cage area along ribs 4 through 6 Abdomen: Soft, no tenderness Skin: Warm, dry. Extremities: No tenderness, no cyanosis, ROM intact, no edema. Neurologic: Alert and oriented X 3, normal motor function, normal sensory function, no focal deficits noted. GCS 15. Psychologic: Affect normal, judgment normal, mood normal. Current Patient Data: Vital Signs: Vital Signs Date Time Temp Pulse Resp B/P (MAP) Pulse Ox O2 Delivery O2 Flow Rate FiO2 9/19/21 16:15 98.9 94 18 116/68 (84) 99 Room Air 98.9 EKG: EKG: Time read: 4:21 PM Normal sinus rhythm rate of 85, no ST-T wave changes, no ectopic beats, normal axis, normal ME, QRS, and QTc intervals. Impression: Normal EKG. interpreted by Bharat dennison D.O. Radiology/Procedures: Radiology/Procedures: No airspace disease, infiltrates or consolidations, lung cortez clear. No pneumothorax or pleural effusion. Cardiac silhouette within normal limits. No widening of mediastinum. No obvious free air seen. Impression: normal CXR. Interpreted by Bharat dennison D.O. Course & Med Decision Making: Course & Med Decision Making PERC Criteria: Age =50?: No HR =100?: No SaO2 on room air <95%?: No Unilateral leg swelling?: No Hemoptysis?: No Recent surgery or trauma?: No Prior PE or DVT?: No Hormone use?: No Patient with benign history and exam, chest x-ray and EKG are within normal limits, likely musculoskeletal chest pain given her history of lifting heavy objects at work. She was provided with a work note and counseled on NSAID use at home for her pain. Departure Departure Impression: Primary Impression: Chest pain Disposition: 01 HOME / SELF CARE / HOMELESS Condition: GOOD Referrals: NO PCP (PCP) Patient Instructions: Chest Pain (Nonspecific), [id number] Additional Instructions: You were seen in the emergency department for chest pain. Your exam and testing did not show any acute abnormality that warranted admission today but does not rule out underlying cardiovascular disease. You need to follow up with your primary doctor and/or cardiology for further evaluation. Return to the Emergency Department immediately, day or night, if you have worsening or continued chest pain, shortness of breath, nausea, sweating during chest pain, trouble breathing, chest pain with exertion (climbing stairs or walking for example), leg swelling or for any other concerns. BHARAT MCDANIEL DO Jan 30, 2021 16:34
--- NOTE | 2021-01-30 16:52 | RAD ---
XR CHEST 1V History: Reason: chest pain / Spl. Instructions: / History: Comparison: November 12, 2020 Findings: No consolidation or pleural effusion. Normal heart size. No pneumothorax. Impression: 1. No acute cardiopulmonary process. Electronically signed by: Musa Dean DO (01/30/2021 4:49 PM) [facility]
[2021-01-30 17:00] VITALS: BP 121/72
--- NOTE | 2021-01-31 00:22 | EKG ---
[facility] [address] [place] [address] Test Date: 2021-01-30 Test Time: 16:15:11 Pat Name: JOSE SALINAS Department: Room: Gender: F Production Mechanic: : 1970 Requested By: ADINA MCDANIEL Order Number: [id number] Reading MD: Measurements Intervals [place] Rate: 85 P: 68 IN: 190 QRS: 64 QRSD: 70 T: 0 QT: 370 QTc: 440 Interpretive Statements SINUS RHYTHM NORMAL ECG RI6.02 No previous ECG available for comparison
== END 2021-01-30 17:32 | disposition home or self-care (01) ==
LOC: ER 16:14
DX: R07.89 Other chest pain (principal); M54.2 Cervicalgia; M25.512 Pain in left shoulder; Z88.0 Allergy status to penicillin; Z88.5 Allergy status to narcotic agent
CPT/HCPCS: 71045; 93005; 99283

== ENCOUNTER 2021-08-15 13:28 | Emergency (ER) | payer OTHER ==
[~2021-08-15] VITALS: Ht 167.6 cm; Wt 55.4 kg
[~2021-08-15 13:28] MED LIST changes: +CYCL10TA19 PO; +NAPR-514 PO
[2021-08-15 13:32] VITALS: BP 126/58
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
== END 2021-08-15 14:16 | disposition home or self-care (01) ==
LOC: ER 13:28
DX: Z02.79 Encounter for issue of other medical certificate (principal); Z88.0 Allergy status to penicillin; Z88.5 Allergy status to narcotic agent
CPT/HCPCS: 99281